=== PATIENT | female | born 1985 | race Caucasian/White ===

== ENCOUNTER 2017-01-25 15:23 | Emergency (ER) | payer BC, MEDICAID ==
[~2017-01-25] VITALS: Ht 167.6 cm; Wt 99.3 kg
--- NOTE | 2017-01-25 16:10 | PD ---
HPI Chief Complaint Decreased movement Date Seen: Jan 25, 2017 Time Seen: 16:00 Travel History International Travel<30 Days: No Contact w/Intl Traveler<30Days: No Known Affected Area: No History of Present Illness HPI Patient is 31-year-old white female at [address] Del Cid for care presents complaining of decreased movement today and last night, denies pain bleeding or leakage of fluid. Heart rate tracing is reactive here on OB ED and she's had an occasional contraction. Here on OB ED the patient says she has felt the baby move several times over the last 20--30 minutes Weeks Gestation: 36 Para: 0 : 2 History Obstetric History Obstetric History 1 early loss Social History Alcohol Use: No Tobacco Use: No Substance Abuse: No Allergies-Medications (Allergen,Severity, Reaction): Coded Allergies: No Known Allergies (Unverified , 01/25/17) Home Meds No Active Prescriptions or Reported Meds Review of Systems General / Constitutional: No: Fever, Weight Gain, Chills, Other Eyes: No: Diploplia, Blurred Vision, Visual changes, Pain, Photophobia HENT: No: Headaches, Vertigo, Lightheadedness Cardiovascular: No: Irregular Rhythm, Chest Pain or Discomfort, Palpitations, Tachycardia, Syncope, Varicosities, Edema, Cyanosis Respiratory: No: Cough, Short of Breath, Other Gastrointestinal: No: Nausea, Vomiting, Diarrhea Genitourinary: No: Decreased Urinary Output, Oliguria Musculoskeletal: No: Limited ROM, Weakness, Cramping, Edema, Pain Skin: No Rash, No Itching, No Dryness, No Lumps, No Change in Pigmentation, No Change in Nails, No Alopecia, No Lesions Neurologic: No: Weakness, Dizziness, Syncope, Focal Abnormalities, Coordination Problem, Headache, Slurred Speech, Seizures Psychiatric: No: Depression, Suicidal Ideations, Homicidal Ideation Endocrine: No: Heat Intolerance, Cold Intolerance, Polydipsia, Polyuria, Other Physical Exam Narrative GENERAL: Well-nourished, well-developed patient. SKIN: Warm and dry. HEAD: Normocephalic and atraumatic. EYES: No scleral icterus. No injection or drainage. ENT: No nasal drainage noted. Mucous membranes pink. Airway patent. NECK: Supple, trachea midline. No JVD. CARDIOVASCULAR: Regular rate and rhythm without murmurs, gallops, or rubs. RESPIRATORY: Breath sounds equal bilaterally. No accessory muscle use. BREASTS: Bilateral exam showed no masses , no retractions, no nipple discharge. ABDOMEN/GI: Abdomen soft, non-tender, bowel sounds present, no rebound, no guarding Gravid to [36-] weeks size Fundal Height: [36-] GENITOURINARY: External Genitalia: intact and normal in appearance Membranes: [intact ] Uterine Contractions: [-occasional] FHT's: Category: [-1] Baseline: [133-] Reactive: [yes-] Variability: [mod-] Decels: [-none] EXTREMITIES: No cyanosis or edema. BACK: Nontender without obvious deformity. No CVA tenderness. NEUROLOGICAL: Awake and alert. Motor and sensory grossly within normal limits. Five out of 5 muscle strength in all muscle groups. Normal speech. MDM Interpretation(s) Patient 31-year-old white female at 36 weeks who presents planning of decreased movement today and last night. Here on OB ED patient's NST is reactive she's had occasional contraction and she states she is feeling the baby move since she's been here, she has no bleeding or leakage of or significant pain at this time contractions are only occasional, the patient states she ranks some orange juice this morning and tried to eat something to get the baby to move the baby did not move much more after that so she came to the hospital Plan Since patient's NST is reactive at this time and she is felt baby move here were comfortable letting her go home and follow-up with Dr. Del Cid Diagnosis Diagnosis: Primary Impression: Decreased movement affecting management of in third trimester Disposition: 01 DISCHARGE HOME Condition: Stable Scripts No Active Prescriptions or Reported Meds Andres Fraser II, MD Jan 25, 2017 16:10
== END 2017-01-25 16:20 | disposition home or self-care (01) ==
LOC: HOBED 15:23
DX: O36.8130 Decreased fetal movements, third trimester, not applicable or unspecified (principal); Z3A.36 36 weeks gestation of pregnancy
CPT/HCPCS: 59025

== ENCOUNTER 2017-02-21 05:14 | Inpatient (IN) | payer BC, MEDICAID ==
[2017-02-21] VITALS (64 sets, daily range): BP systolic 104–147; BP diastolic 57–115; PULSE 76–103; RESP 17–21; TEMP 97.8–98.1; O2SAT 100
[~2017-02-21] VITALS: Ht 170.2 cm; Wt 99.0 kg
[2017-02-21] MEDS ORDERED: PREN1TAB58 (05:33)
[2017-02-21] MEDS ORDERED: NS 1000 ML IV PRN (05:45)
[2017-02-21] MEDS ORDERED: LIDOCAINE HCL 1% 50 ML VIAL INFIL PRN (05:45)
[2017-02-21] MEDS: LACTATED RINGER'S 1000 ML IV SCH ×3 (05:45→15:44)
[2017-02-21] MEDS ORDERED: OXYTOCIN 30 UNITS 500ML PREMIX IV ONE (05:45)
[2017-02-21] MEDS ORDERED: LIDOCAINE HCL 1% 50 ML VIAL I-DERMAL PRN (05:45)
[2017-02-21] MEDS ORDERED: MINERAL OIL 10 ML VIAL TOPICAL PRN (05:45)
[2017-02-21] MEDS ORDERED: NS 500 ML BOLUS IV PRN (05:45)
[2017-02-21] MEDS ORDERED: CITRIC ACID-SODIUM CITRATE LIQ 30 ML UDC PO SCH (05:45)
[2017-02-21] MEDS ORDERED: ONDANSETRON HCL 4 MG/2 ML VIAL IV PUSH PRN (05:45)
[2017-02-21] MEDS ORDERED: LACTATED RINGER'S 1000 ML BOLUS IV PRN (05:45)
[2017-02-21] MEDS ORDERED: OXYTOCIN 30 UNITS/NS 500ML PREMIX IV SCH (06:00)
[2017-02-21 06:28] LABS: AUTOMATED NEUTROPHIL # 9.5 TH/MM3 (1.8-7.7); BASOPHIL # 0.1 TH/MM3 (0-0.2); BASOPHIL % 0.4 % (0.0-2.0); EOSINOPHIL # 0.1 TH/MM3 (0-0.4); EOSINOPHIL % 0.9 % (0.0-4.0); HEMATOCRIT 35.4 % (35.0-46.0); HEMO FLAGS DIFF FINAL; LYMPH % 18.9 % (9.0-44.0); LYMPHOCYTE # 2.4 TH/MM3 (1.0-4.8); MEAN CELL VOLUME 95.4 FL (80.0-100.0); MEAN CORPUSCULAR HGB CONC 34.6 % (32.0-36.0); MONO % 6.2 % (0.0-8.0); NEUT % 73.6 % (16.0-70.0); PLATELET COUNT 272 TH/MM3 (150-450); RED BLOOD COUNT 3.71 MIL/MM3 (4.00-5.30); RED CELL DISTRIBUTION WIDTH 13.3 % (11.6-17.2); WHITE BLOOD COUNT 12.9 TH/MM3 (4.0-11.0)
[2017-02-21 06:54] LABS: BACTERIA, URINE RARE /hpf; BLOOD, URINE NEG (NEG); COMMENT (UR) CULTURE INDICATED; CULTURE IF INDICATED CULTURE INDICATED; GLUCOSE,URINE NEG (NEG); KETONE, URINE NEG (NEG); MUCUS URINE FEW /lpf (OCC); NITRITE,URINE NEG (NEG); SQUAMOUS EPITHELIAL CELL URINE 17 /hpf (0-5); URINE COLOR LIGHT-YELLOW (YELLW/STRAW)
[2017-02-21 07:48] LABS: ALT (GPT) 26 U/L (10-53); ANION GAP 10 MEQ/L (5-15); AST (GOT) 13 U/L (15-37); BICARBONATE 19.7 MEQ/L (21.0-32.0); BLOOD UREA NITROGEN 13 MG/DL (7-18); CHLORIDE 107 MEQ/L (98-107); GLOMERULAR FILTRATION RATE 109 ML/MIN (>89); POTASSIUM 3.8 MEQ/L (3.5-5.1); SODIUM (NA) 137 MEQ/L (136-145)
[2017-02-21 07:50] LABS: ALKALINE PHOSPHATASE 162 U/L (45-117); TOTAL BILIRUBIN ADULT 0.2 MG/DL (0.2-1.0)
[2017-02-21] MEDS ORDERED: ePHEDrine/NS 25 MG/5 ML SYR ONE (10:24)
[2017-02-21] MEDS ORDERED: fentaNYL 2MCG-BUPIV 0.125% INJ 100 ML ONE ×2 (10:24→18:46)
[2017-02-21] MEDS ORDERED: FAMOTIDINE 20 MG TAB PO ONE (15:00)
[2017-02-21] MEDS ORDERED: ALUMINUM/MAGNESIUM/SIMETH 30 ML CUP PO PRN (20:30)
[2017-02-21] MEDS ORDERED: ZOLPIDEM TARTRATE 5 MG TAB PO PRN (20:30)
[2017-02-21] MEDS ORDERED: SODIUM CHLORIDE 0.9% FLUSH 10 ML FLUSH IV FLUSH PRN (20:30)
[2017-02-21] MEDS ORDERED: ONDANSETRON ODT 4 MG TAB PO PRN (20:30)
[2017-02-21] MEDS ORDERED: oxyCODONE/ACETAMINOPHEN 5 MG/325 MG TAB PO PRN (20:30)
[2017-02-21] MEDS ORDERED: BENZOCAINE 20% TOPICAL SPRAY 60 ML CAN TOPICAL PRN (20:30)
--- NOTE | 2017-02-21 20:32 | PD.OB.DELI ---
Weeks gestation: 40 Gest age assessed date: Feb 21, 2017 Gest age assessed time: 09:00 Pt started active labor?: No Medical induction of labor?: Yes Medical induction start date: Feb 21, 2017 Medical induction start time: 07:00 Artificial rupture of membrane: Yes Artificial ROM date: Feb 21, 2017 Artifical ROM time: 08:15 Anesthesia: Epidural Episiotomy: Midline Vaginal Delivery: Normal Presentation: Occiput anterior Nuchal Cord: x1 Delayed cord clamping (45 sec): No Infant: Male Delivery date: Feb 21, 2017 Delivery time: 19:56 One Minute : 8 Five Minute : 8 Weight: 7-14 Placenta: Spontaneous delivery, Intact, 3 vessel cord Laceration: Episiotomy, 2 deg Repair: Chromic interrupted, Chromic running Estimated blood loss: 300 Cherelle Cruz MD Feb 21, 2017 20:32
[2017-02-21] MEDS: ACETAMINOPHEN 325 MG TAB PO PRN (20:44)
[2017-02-21] MEDS: IBUPROFEN 600 MG TAB PO PRN (20:44)
[2017-02-21] MEDS ORDERED: OXYTOCIN 30 UNITS-500ML PREMIX 500 ML IV SCH (21:00)
[2017-02-21] MEDS ORDERED: MEASLES, MUMPS, RUBELLA VACCINE 0.5 ML VIAL SQ ONE (21:00)
[2017-02-21] MEDS ORDERED: DIPHTH/TETANUS/ACEL PERTUSSIS (BOOSTER) 0.5 ML VIAL/PFS IM ONE (21:00)
[2017-02-21] MEDS ORDERED: SODIUM CHLORIDE 0.9% FLUSH 10 ML FLUSH IV FLUSH SCH (21:00)
[2017-02-21] MEDS: WITCH HAZEL 50%/GLYCERIN 12.5% 40 PAD JAR TOPICAL PRN (22:31)
[2017-02-22] MEDS: DOCUSATE SODIUM 50 MG/SENNA 8.6 MG TAB PO PRN ×2 (00:47→13:33)
[2017-02-22] MEDS: oxyCODONE/ACETAMINOPHEN 5 MG/325 MG TAB PO PRN ×4 (00:48→22:10)
[2017-02-22] MEDS: ACETAMINOPHEN 325 MG TAB PO PRN ×2 (05:32→13:32)
[2017-02-22] MEDS: IBUPROFEN 600 MG TAB PO PRN ×3 (05:32→19:45)
[2017-02-22 08:20] VITALS: BP 120/82; PULSE 89; RESP 16; TEMP 97.5
--- NOTE | 2017-02-22 13:19 | HHI.OB ---
Subjective Post Day: 1 Remarks Pt doing well, no co Objective Vitals/I&O Vital Signs Date Time Temp Pulse Resp B/P (MAP) Pulse Ox O2 Delivery O2 Flow Rate FiO2 02/22/17 08:20 97.5 89 16 02/22/17 08:20 120/82 (95) 02/21/17 22:30 98 18 114/71 (85) 02/21/17 22:30 98.0 02/21/17 21:44 18 02/21/17 21:44 18 02/21/17 21:20 18 02/21/17 20:45 97 126/75 (92) 02/21/17 20:40 20 02/21/17 20:24 18 02/21/17 20:15 90 123/81 (95) 02/21/17 20:09 20 02/21/17 20:02 93 136/75 (95) 02/21/17 19:00 103 116/91 (99) 02/21/17 18:46 18 02/21/17 18:30 94 140/89 (106) 02/21/17 17:00 84 104/57 (73) 02/21/17 16:00 90 138/87 (104) 02/21/17 15:30 84 126/83 (97) 02/21/17 14:00 80 02/21/17 13:55 89 02/21/17 13:50 90 02/21/17 13:45 95 02/21/17 13:40 95 02/21/17 13:35 86 02/21/17 13:30 132/77 (95) 02/21/17 13:30 84 02/21/17 13:25 85 02/21/17 13:20 88 Objective Remarks GENERAL: Well-nourished, well-developed patient. CARDIOVASCULAR: Regular rate and rhythm without murmurs, gallops, or rubs. RESPIRATORY: Breath sounds equal bilaterally. No accessory muscle use. ABDOMEN/GI: Abdomen soft, non-tender. Fundus: Firm, non-tender at umbilicus. GENITOURINARY: Light to moderate bleeding. EXTREMITIES: No cyanosis or edema, non-tender, without signs of DVT. Medications and IVs Current Medications Medications (Trade) Dose Ordered Sig/Ramírez Route Start Time Stop Time Status Last Admin (NS Flush) 2 ml BID IV FLUSH 02/21/17 21:00 02/21/17 21:24 (NS Flush) 2 ml UNSCH PRN IV FLUSH 02/21/17 20:30 (Tylenol) 650 mg Q4H PRN PO 02/21/17 20:30 02/22/17 05:32 (Motrin) 600 mg Q6H PRN PO 02/21/17 20:30 02/22/17 05:32 (Percocet 5-325 Mg) 1 tab Q4H PRN PO 02/21/17 20:30 02/22/17 09:29 (Percocet 5-325 Mg) 2 tab Q4H PRN PO 02/21/17 20:30 (Americaine 20% Top Spr) 1 spray Q4H PRN TOPICAL 02/21/17 20:30 02/21/17 22:31 (Tucks Pads) 1 applic QID PRN TOPICAL 02/21/17 20:30 02/21/17 22:31 (Marta-Colace) 2 tab Q12H PRN PO 02/21/17 20:30 02/22/17 00:47 (Ambien) 5 mg HS PRN PO 02/21/17 20:30 (Mag-Al Plus Susp Liq) 15 ml Q8H PRN PO 02/21/17 20:30 (Zofran Odt) 4 mg Q6H PRN PO 02/21/17 20:30 Assessment/Plan Assessment and Plan PPD # 1 s/p doing well, routine care, anticipate discharge in Cherelle Hitchcock MD Feb 22, 2017 13:19
[2017-02-22] MEDS: WITCH HAZEL 50%/GLYCERIN 12.5% 40 PAD JAR TOPICAL PRN (15:54)
[2017-02-22 20:30] VITALS: BP 139/81; PULSE 80; RESP 16; TEMP 97.7
[2017-02-23] MEDS: IBUPROFEN 600 MG TAB PO PRN ×2 (03:31→09:08)
[2017-02-23 08:10] VITALS: BP 132/76; PULSE 82; RESP 18; TEMP 97.6
--- NOTE | 2017-02-23 08:45 | HHI.OB ---
Subjective Post Day: 1 Remarks doing well ready for DC home Objective Vitals/I&O Vital Signs Date Time Temp Pulse Resp B/P (MAP) Pulse Ox O2 Delivery O2 Flow Rate FiO2 02/22/17 20:30 97.7 80 16 139/81 (100) Objective Remarks GENERAL: Well-nourished, well-developed patient. . ABDOMEN/GI: Abdomen soft, non-tender. Fundus: Firm, non-tender at umbilicus. GENITOURINARY: Light to moderate bleeding. EXTREMITIES: No cyanosis or edema, non-tender, without signs of DVT. Medications and IVs Current Medications Medications (Trade) Dose Ordered Sig/Ramírez Route Start Time Stop Time Status Last Admin (NS Flush) 2 ml BID IV FLUSH 02/21/17 21:00 02/21/17 21:24 (NS Flush) 2 ml UNSCH PRN IV FLUSH 02/21/17 20:30 (Tylenol) 650 mg Q4H PRN PO 02/21/17 20:30 02/22/17 13:32 (Motrin) 600 mg Q6H PRN PO 02/21/17 20:30 02/23/17 03:31 (Percocet 5-325 Mg) 1 tab Q4H PRN PO 02/21/17 20:30 02/22/17 22:10 (Percocet 5-325 Mg) 2 tab Q4H PRN PO 02/21/17 20:30 (Americaine 20% Top Spr) 1 spray Q4H PRN TOPICAL 02/21/17 20:30 02/21/17 22:31 (Tucks Pads) 1 applic QID PRN TOPICAL 02/21/17 20:30 02/22/17 15:54 (Marta-Colace) 2 tab Q12H PRN PO 02/21/17 20:30 02/22/17 13:33 (Ambien) 5 mg HS PRN PO 02/21/17 20:30 (Mag-Al Plus Susp Liq) 15 ml Q8H PRN PO 02/21/17 20:30 (Zofran Odt) 4 mg Q6H PRN PO 02/21/17 20:30 Assessment/Plan Assessment and Plan PPD # 2 s/p doing well, routine care, anticipate discharge today Cedrick Aleman MD Feb 23, 2017 08:45
--- NOTE | 2017-02-23 08:46 | HHI.DCPOC ---
Discharge Care Plan Diagnosis: (1) Spontaneous vaginal delivery Report Symptoms to Your Doctor -Temperature above 100.5 degrees -Redness, of incision or excessive or foul smelling drainage -Unusual pain or calf pain -Increased vaginal bleeding -Painful or difficulty urinating -Feelings of extreme sadness or anxiety after 2 weeks Goals to Promote Your Health * To prevent worsening of your condition and complications * To maintain your health at the optimal level Directions to Meet Your Goals Take your medications as prescribed Follow your dietary instruction Follow activity as directed Ensure plenty of rest for recovery Drink fluids for hydration Keep your appointments as scheduled Take your immunizations and boosters as scheduled If your symptoms worsen call your PCP, if no PCP go to Urgent Care Center or Emergency Room Smoking is Dangerous to Your Health. Avoid second hand smoke Call the 24-hour crisis hotline for domestic abuse at Cedrick Aleman MD Feb 23, 2017 08:46
[2017-02-23] MEDS ORDERED: OXYC1TAB63 PO (08:47)
--- NOTE | 2017-02-23 08:52 | HHI.DS ---
Admission Date Feb 21, 2017 at 05:14 Discharge Date: Feb 23, 2017 Admitting Diagnosis Diagnosis: (1) Spontaneous vaginal delivery ICD Codes: O80 - Encounter for full-term uncomplicated delivery Delivery Date: Feb 21, 2017 Vaginal Delivery: Normal : Male Brief History doing well came in and delivered on 02/21 Hospital Course and recovery for 2 days PP. Doing well ready for DC home Pt Condition on Discharge: Good Discharge Disposition: Discharge Home Discharge Instructions Diet Instructions: As Tolerated, No Restrictions Activities You Can Perform: Regular-No Restrictions Activities to Avoid: Driving for 24 hrs Follow up Referrals: [facility] - 2-3 Days @ [facility] with Cedrick Aleman MD New Medications: Oxycodone-Acetaminophen (Oxycodone-Acetaminophen) 5-325 mg Tab 1 TAB PO Q4H PRN for PAIN SCALE 3 TO 5, #20 TAB 0 Refills Continued Medications: Vit/Iron Fumarate/FA ( Vitamin Formula Tb) 27 Mg Iron-800 Mcg Tablet Cedrick Aleman MD Feb 23, 2017 08:52
[2017-02-23] MEDS: oxyCODONE/ACETAMINOPHEN 5 MG/325 MG TAB PO PRN (09:08)
== END 2017-02-23 13:00 | disposition home or self-care (01) | DRG 775 ==
LOC: H2EB 05:14 → H1EA 22:01
PROVIDERS: ADMIT Obstetrics & Gynecology; ATTEND Obstetrics & Gynecology
PROC: 10E0XZZ Delivery of Products of Conception, External Approach (ICD-10-PCS; principal; 2017-02-21)
PROC: 0W8NXZZ Division of Female Perineum, External Approach (ICD-10-PCS; 2017-02-21)
PROC: 10907ZC Drainage of Amniotic Fluid, Therapeutic from Products of Conception, Via Natural or Artificial Opening (ICD-10-PCS; 2017-02-21)
PROC: 3E0P3VZ Introduction of Hormone into Female Reproductive, Percutaneous Approach (ICD-10-PCS; 2017-02-21)
DX: O69.81X0 Labor and delivery complicated by cord around neck, without compression, not applicable or unspecified (principal); Z37.0 Single live birth; Z3A.40 40 weeks gestation of pregnancy
CPT/HCPCS: 59025; 80053; 80307; 81001; 85025; 86850; 86900; 86901; 87086; 90715; J2590; J7120

== ENCOUNTER 2017-08-11 08:20 | Emergency (ER) | payer BC, MEDICAID ==
[~2017-08-11] VITALS: Ht 167.6 cm; Wt 90.5 kg
[~2017-08-11 08:20] MED LIST: OXYC1TAB63 PO; PREN1TAB58
[2017-08-11 08:30] VITALS: BP 142/89; PULSE 82; RESP 18; TEMP 98; O2SAT 98
[2017-08-11] MEDS ORDERED: [UNRECOGNIZED DRUG - OTHER] (09:59)
[2017-08-11] MEDS ORDERED: MUPI2%T TOPICAL (10:01)
--- NOTE | 2017-08-11 10:01 | PD ---
HPI Chief Complaint: Lump, Cyst, Hernia Time Seen by Provider: 09:54 Travel History International Travel<30 days: No Contact w/Intl Traveler<30days: No Traveled to known affect area: No History of Present Illness HPI Examined in the presence of a female nurse. This is a 32-year-old female who presents for evaluation of an area of skin irritation in the inner thigh and suprapubic region. She reports that over the past 2 weeks she has developed several small red and irritated areas in the region. She does report that she shaves on a regular basis. She denies any fevers, chills. She denies any abdominal pain. She denies any vaginal bleeding or discharge. PFSH Past Medical History Hx Anticoagulant Therapy: No Asthma: Yes Cardiovascular Problems: No Chemotherapy: No Cerebrovascular Accident: No Diabetes: No Diminished Hearing: No Respiratory: Yes ?: Not LMP: IRREGULAR MERINA : 1 Past Surgical History Hysterectomy: No Oral Surgery: Yes (wisdom teeth) Tonsillectomy: Yes Social History Alcohol Use: No Tobacco Use: No Substance Use: No Allergies-Medications (Allergen,Severity, Reaction): Coded Allergies: No Known Allergies (Unverified , 01/25/17) Reported Meds & Prescriptions Reported Meds & Active Scripts Active Bactroban Topical (Mupirocin) 22 Gm Cream 1 Applic TOPICAL BID 14 Days Reported [ jj banks] Review of Systems General / Constitutional: No: Fever, Chills Skin: Positive Other (rash, irritation) Physical Exam Narrative GENERAL: Well-developed well-nourished female no acute distress SKIN: Warm and dry. Areas of papular formation noted to the proximal inner thighs and suprapubic region. No significant induration or erythema. No pustular formation. No vesicles. CARDIOVASCULAR: Regular rate and rhythm. No murmur appreciated. RESPIRATORY: No accessory muscle use. Clear to auscultation. Breath sounds equal bilaterally. GASTROINTESTINAL: Abdomen soft, non-tender, nondistended. Hepatic and splenic margins not palpable. Data Data Last Documented VS Vital Signs Date Time Temp Pulse Resp B/P (MAP) Pulse Ox O2 Delivery O2 Flow Rate FiO2 08/11/17 08:30 98.0 82 18 142/89 (106) 98 MDM Medical Decision Making Medical Screen Exam Complete: Yes Emergency Medical Condition: Yes Medical Record Reviewed: Yes Differential Diagnosis Folliculitis, abscess, cellulitis, carbuncle Narrative Course Examination is consistent with folliculitis. The patient will be discharged with Bactroban cream. Diagnosis Primary Impression: Folliculitis Additional Instructions: Medication as prescribed. Avoid excessive irritation of the skin from shaving. Return for any acutely new or worsening symptoms. Med/Other Pt SpecificInfo: Prescription(s) given Scripts Mupirocin Topical (Bactroban Topical) 22 Gm Cream 1 APPLIC TOPICAL BID for Mgmt Bacterial Infection for 14 Days, #1 TUBE 0 Refills Prov: Eyal Diaz MD 08/11/17 Disposition: 01 DISCHARGE HOME Condition: Stable Ryan Arango Aug 11, 2017 10:01
== END 2017-08-11 10:17 | disposition home or self-care (01) ==
LOC: NEPD 08:20
DX: L73.9 Follicular disorder, unspecified (principal); J45.909 Unspecified asthma, uncomplicated
CPT/HCPCS: 99282